=== PATIENT | female | born 2000 | race Two or more races ===

== ENCOUNTER 2023-11-27 07:41 | Outpatient (CLI) | payer OTHER | END 2023-11-27 07:51 | disposition home or self-care (01) | LOC: SONOGRAMA 07:41 | PROVIDERS: ATTEND Specialist | DX: E04.2 Nontoxic multinodular goiter (principal) ==

== ENCOUNTER 2023-12-20 12:58 | Outpatient (CLI) | payer OTHER | END 2023-12-20 13:02 | disposition home or self-care (01) | LOC: SONOGRAMA 12:58 | PROVIDERS: ATTEND Pathology Anatomic Pathology & Clinical Pathology | DX: D34 Benign neoplasm of thyroid gland (principal); E06.3 Autoimmune thyroiditis; E04.2 Nontoxic multinodular goiter ==

== ENCOUNTER 2024-02-06 14:30 | Outpatient (CLI) | payer OTHER | END 2024-02-06 14:40 | disposition home or self-care (01) | LOC: PPH VACUNA 14:30 | PROVIDERS: ATTEND Emergency Medicine Pediatric Emergency Medicine | DX: Z23 Encounter for immunization (principal) ==

== ENCOUNTER 2024-11-27 10:53 | Outpatient (CLI) | payer OTHER | END 2024-11-27 10:56 | disposition home or self-care (01) | LOC: SONOGRAMA 10:53 | PROVIDERS: ATTEND Specialist | DX: E04.2 Nontoxic multinodular goiter (principal); L04.0 Acute lymphadenitis of face, head and neck ==

== ENCOUNTER 2024-12-02 10:38 | Outpatient (CLI) | payer OTHER | END 2024-12-02 10:43 | disposition home or self-care (01) | LOC: RAD 10:38 | PROVIDERS: ATTEND Physical Medicine & Rehabilitation | DX: M54.2 Cervicalgia (principal); M54.40 Lumbago with sciatica, unspecified side; M54.50 Low back pain, unspecified ==